=== PATIENT | female | born 1990 | race American Indian/Alaskan Native ===

== ENCOUNTER 2019-03-08 19:28 | Emergency (ER) | payer OTHER ==
[2019-03-08] MEDS ORDERED: TYLENOL PO ONE (19:37)
--- NOTE | 2019-03-08 19:39 | Emergency Department Report ---
Blank Doc - Documentation Documentation: 29 y/o female comes in chest pain, back pain, abd pain since yesterday. Has a elevated temp 102.5. Pain 07/08. Lmp 03/07/19
[2019-03-08 20:07] LABS: Basophils % (Auto) 0.4 % (0.0-1.8); Eosinophils % (Auto) 0.3 % (0.0-4.3); Hematocrit 34.6 % (30.3-42.9); Hemoglobin 11.2 gm/dl (10.1-14.3); Lymphocytes # (Auto) 2.1 K/mm3 (1.2-5.4); Lymphocytes % (Auto) 16.1 % (13.4-35.0); Mean Corpuscular HGB Conc 32 % (30-34); Mean Corpuscular Volume 75 fl (79-97); Monocytes # (Auto) 1.2 K/mm3 (0.0-0.8); Monocytes % (Auto) 9.4 % (0.0-7.3); Platelet Count 356 K/mm3 (140-440); Red Blood Count 4.62 M/mm3 (3.65-5.03); Red Cell Distribution Width 14.1 % (13.2-15.2)
[2019-03-08 20:22] LABS: Alanine Aminotransferase 15 units/L (7-56); Albumin 4.4 g/dL (3.9-5); BUN/Creatinine Ratio 8; Blood Urea Nitrogen 8 mg/dL (7-17); Calcium 9.3 mg/dL (8.4-10.2); Hemolysis Index 0
[2019-03-08 20:27] LABS: Bacteria,Urine 2+ /HPF (Negative); Bilirubin,Urine NEG (Negative); Blood,Urine LG (Negative); Color,Urine Amber (Yellow); Mucus,Urine 3+ /HPF
[2019-03-08 20:28] LABS: HCG Qualitative,Urine Negative (Negative); WBC,Urine > 182.0 /HPF (0.0-6.0)
--- NOTE | 2019-03-08 22:56 | XRay Report ---
PROCEDURE: XR CHEST ROUTINE 2V TECHNIQUE: PA and lateral chest radiographs were obtained. HISTORY: fever and chest pain. COMPARISONS: None. FINDINGS: Heart: Normal. Mediastinum/Vessels: Normal. Lungs/Pleural space: Normal. Bony thorax: No acute osseous abnormality. IMPRESSION: Normal examination. This document is electronically signed by Vance Mantilla MD., Mar 08 2019 10:54:16 PM ET
[2019-03-08] MEDS ORDERED: LEVAQUIN PO ONE (23:50)
[2019-03-08] MEDS ORDERED: NACL 0.9% 1000 ML 1,000 ML IV ONE (23:50)
[2019-03-08] MEDS ORDERED: ZOFRAN IV ONE (23:50)
[2019-03-08] MEDS ORDERED: IBUPROFEN PO ONE (23:50)
--- NOTE | 2019-03-08 23:52 | Emergency Department Report ---
ED Abdominal Pain HPI - General Chief Complaint: Abdominal Pain Stated Complaint: ABD PAIN Time Seen by Provider: 03/08/19 23:48 Source: patient Mode of arrival: Ambulatory Limitations: No Limitations - History of Present Illness Initial Comments: This is a 29-year-old female here report that she is having lower abdominal pain to her pelvic area that started yesterday, nausea without vomiting and said that she is having lower back pain and she also reported that she was having some chest pain but none today. Denies any heart disease, high blood pressure. Reports chills. Denies any vaginal bleeding or discharge and menstrual period started 03/07/2019. She is currently on her period. She reports urinary burning with frequency. Denies any shortness of breath or cough .denies any diarrhea MD Complaint: abdominal pain, flank pain Onset/Timin -: days(s) Location: suprapubic, bilateral flank Radiation: none Migration to: no migration Severity: severe Severity scale (0 -10): 9 Quality: cramping, aching Consistency: constant Improves With: nothing Worsens With: nothing Context: other (unknown) Associated Symptoms: nausea, chills, dysuria. denies: vomiting, diarrhea, fever, constipation, hematemesis, hematochezia, melena, hematuria, anorexia, syncope Treatments Prior to Arrival: other (none) - Related Data LMP Date: 03/07/19 Previous Rx's Medication Instructions Recorded Last Taken Type Ciprofloxacin HCl [Ciprofloxacin 500 mg PO Q12HR 10 Days #20 tab 03/09/19 Unknown Rx TAB] Ibuprofen [Motrin] 600 mg PO Q8H PRN #12 tablet 03/09/19 Unknown Rx Ondansetron [Zofran ODT TAB] 8 mg PO Q8HR PRN #16 tab.rapdis 03/09/19 Unknown Rx Phenazopyridine [Pyridium] 100 mg PO TID PRN 3 Days #9 tab 03/09/19 Unknown Rx Allergies Allergy/AdvReac Type Severity Reaction Status Date / Time No Known Allergies Allergy Unverified 03/08/19 19:30 ED Review of Systems ROS: Stated complaint: ABD PAIN Other details as noted in HPI Constitutional: chills. denies: fever Eyes: denies: eye pain ENT: denies: ear pain, throat pain, congestion Respiratory: denies: cough, shortness of breath, wheezing Cardiovascular: denies: chest pain, palpitations, dyspnea on exertion, edema, syncope Gastrointestinal: abdominal pain, nausea. denies: vomiting, diarrhea, constipa tion, hematemesis, melena, hematochezia Genitourinary: dysuria, frequency. denies: hematuria, discharge, abnormal menses, dyspareunia Musculoskeletal: back pain. denies: joint swelling, arthralgia, myalgia Skin: denies: rash Neurological: denies: headache, weakness, numbness, paresthesias, confusion, abnormal gait ED Past Medical Hx - Past Medical History Previous Medical History?: No - Surgical History Past Surgical History?: No - Family History Family history: no significant - Social History Smoking Status: Current Every Day Smoker Substance Use Type: None - Medications Home Medications: Home Medications Medication Instructions Recorded Confirmed Last Taken Type Ciprofloxacin HCl [Ciprofloxacin 500 mg PO Q12HR 10 Days #20 tab 03/09/19 Unknown Rx TAB] Ibuprofen [Motrin] 600 mg PO Q8H PRN #12 tablet 03/09/19 Unknown Rx Ondansetron [Zofran ODT TAB] 8 mg PO Q8HR PRN #16 tab.rapdis 03/09/19 Unknown Rx Phenazopyridine [Pyridium] 100 mg PO TID PRN 3 Days #9 tab 03/09/19 Unknown Rx ED Physical Exam - General Limitations: No Limitations General appearance: alert, in no apparent distress - Head Head exam: Present: atraumatic, normocephalic - Eye Eye exam: Present: normal appearance, PERRL, EOMI - ENT ENT exam: Present: normal exam, normal orophraynx, mucous membranes dry - Neck Neck exam: Present: normal inspection, full ROM. Absent: tenderness, meningismus, lymphadenopathy - Respiratory Respiratory exam: Present: normal lung sounds bilaterally. Absent: respiratory distress, chest wall tenderness - Cardiovascular Cardiovascular Exam: Present: tachycardia, normal heart sounds - GI/Abdominal GI/Abdominal exam: Present: soft, tenderness (multiple tenderness to suprapubic area), normal bowel sounds. Absent: distended, guarding, rebound, rigid, organomegaly, mass - Extremities Exam Extremities exam: Present: normal inspection, full ROM, normal capillary refill, other (No cce. + 2 pulses in all extremities, no neurovascular compromise). Absent: tenderness, pedal edema, joint swelling - Back Exam Back exam: Present: normal inspection, full ROM, CVA tenderness (R), CVA tenderness (L), other (ambulates without any difficulties). Absent: muscle spasm, paraspinal tenderness, vertebral tenderness, rash noted - Neurological Exam Neurological exam: Present: alert, oriented X3, normal gait - Psychiatric Psychiatric exam: Present: normal affect, normal mood - Skin Skin exam: Present: warm, dry, intact, normal color. Absent: rash ED Course Vital Signs 03/08/19 03/08/19 03/09/19 19:34 19:35 00:27 Temperature 102.5 F H 102.5 F H 99.7 F H Pulse Rate 120 H 121 H 91 H Respiratory 18 18 16 Rate Blood Pressure 134/81 134/81 Blood Pressure 92/53 [Left] O2 Sat by Pulse 97 97 100 Oximetry Manual BP is 122/74 - Reevaluation(s) Reevaluation #1: 03/08/19 00:30 Patient given Motrin 800 mg by mouth and prior to Motrin she received Tylenol in triage area at approximately 6:28 PM. This was given for fever. She received 1 L of normal saline IV fluid and a milligram of Zofran in the emergency room. Patient with pyelonephritis. Heart rates elevated and will be reevaluated after IV fluid Reevaluation #2: 03/09/19 01:38 Patient received 1 L of normal saline IV, Zofran 8 mg IV and Motrin 800 mg by mouth and she is feeling better after medication. Vital signs are better. ED Medical Decision Making - Lab Data Result diagrams: 03/08/19 19:51 03/08/19 19:51 Lab Results 03/08/19 03/08/19 03/08/19 Range/Units 19:51 19:51 20:09 WBC 13.0 H (4.5-11.0) K/mm3 RBC 4.62 (3.65-5.03) M/mm3 Hgb 11.2 (10.1-14.3) gm/dl Hct 34.6 (30.3-42.9) % MCV 75 L (79-97) fl MCH 24 L (28-32) pg MCHC 32 (30-34) % RDW 14.1 (13.2-15.2) % Plt Count 356 (140-440) K/mm3 Lymph % (Auto) 16.1 (13.4-35.0) % [place] % (Auto) 9.4 H (0.0-7.3) % Eos % (Auto) 0.3 (0.0-4.3) % Baso % (Auto) 0.4 (0.0-1.8) % Lymph # 2.1 (1.2-5.4) K/mm3 [place] # 1.2 H (0.0-0.8) K/mm3 Eos # 0.0 (0.0-0.4) K/mm3 Baso # 0.0 (0.0-0.1) K/mm3 Seg Neutrophils % 73.8 H (40.0-70.0) % Seg Neutrophils # 9.6 H (1.8-7.7) K/mm3 Sodium 135 L (137-145) mmol/L Potassium 3.6 (3.6-5.0) mmol/L Chloride 96.7 L (98-107) mmol/L Carbon Dioxide 25 (22-30) mmol/L Anion Gap 17 mmol/L BUN 8 (7-17) mg/dL Creatinine 1.0 (0.7-1.2) mg/dL Estimated GFR > 60 ml/min BUN/Creatinine Ratio 8 % Glucose 110 H (65-100) mg/dL Calcium 9.3 (8.4-10.2) mg/dL Total Bilirubin 0.70 (0.1-1.2) mg/dL AST 17 (5-40) units/L ALT 15 (7-56) units/L Alkaline Phosphatase 78 (35-129) units/L Total Protein 8.0 (6.3-8.2) g/dL Albumin 4.4 (3.9-5) g/dL Albumin/Globulin Ratio 1.2 % Lipase 14 (13-60) units/L Urine Color [place] (Yellow) Urine Turbidity Cloudy (Clear) Urine pH 5.0 (5.0-7.0) Ur Specific [place] 1.017 (1.003-1.030) Urine Protein 100 mg/dl (Negative) mg/dL Urine Glucose (UA) Neg (Negative) mg/dL Urine Ketones Tr (Negative) mg/dL Urine Blood Lg (Negative) Urine Nitrite Neg (Negative) Urine Bilirubin Neg (Negative) Urine Urobilinogen 2.0 (<2.0) mg/dL Ur Leukocyte Esterase Lg (Negative) Urine WBC (Auto) > 182.0 H (0.0-6.0) /HPF Urine RBC (Auto) 48.0 (0.0-6.0) /HPF U Epithel Cells (Auto) 3.0 (0-13.0) /HPF Urine Bacteria (Auto) 2+ (Negative) /HPF Urine WBC Clumps 3+ /HPF Urine Mucus 3+ /HPF Urine HCG, Qual Negative (Negative) Urine culture pending - Radiology Data Radiology results: report reviewed Chest x-ray 2 views dictated by radiologist and report reviewed by myself and no acute findings Findings [facility] [address] [place] [address] XRay Report Signed Patient: RUPAL HUGHES MR#: [id number] : 1990 Acct:[id number] Age/Sex: 29 / F ADM Date: 03/08/19 Loc: ED Attending Dr: Ordering Physician: EDGARDO ESPINAL Date of Service: 03/08/19 Procedure(s): XR chest routine 2V Accession Number(s): [id number] cc: EDGARDO ESPINAL Fluoro Time In Minutes: PROCEDURE: XR CHEST ROUTINE 2V TECHNIQUE: PA and lateral chest radiographs were obtained. HISTORY: fever and chest pain. COMPARISONS: None. FINDINGS: Heart: Normal. Mediastinum/Vessels: Normal. Lungs/Pleural space: Normal. Bony thorax: No acute osseous abnormality. IMPRESSION: Normal examination. This document is electronically signed by Felecia Mantilla MD., Mar 08 2019 10:54:16 PM ET Transcribed By: [facility] [place] Dictated By: FELECIA MANTILLA Electronically Authenticated By: FELECIA MANTILLA Signed Date/Time: 03/08/192255 DD/ 34 TD/TT: 03/08/192134 - Medical Decision Making This is a 21-year-old female found to have pyelonephritis. She was treated in emergency room with Levaquin 750 mg by mouth 1, given Zofran 8 mg IV for nausea and 1 L of normal saline IV. She was given Tylenol 975 mg and triage area followed by Motrin 800 mg in ED room. Her temperature is below 100 and her heart rate is 91. Blood pressure is stable and patient says she is feeling a lot better. Denies any abdominal or back pain at present. Denies any nausea. X-ray 2 view chest reveals no acute cardiopulmonary processes Labs: Please review under laboratory section Assessment/plan Acute pyelonephritis-started on Levaquin Abdominal pain-resolved Nausea without vomiting-resolved Tachycardia-resolved Fever in adults-better after Motrin and Tylenol and now 99.5. Patient treated with medication in emergency room and she is not having any pain, fevers nontender and 0.5 and heart rate is at 91 bpm. I explained her diagnosis and treatment plan and she does not have a primary care physician so I told her to follow-up at outside [facility] in 2 days and if her condition worsens prior to follow-up to return to the emergency room if she is not feeling better. Patient discharged home on ciprofloxacin, Zofran, Pyridium and Motrin. - Differential Diagnosis colitis, ectopic , ovarian cyst, pyelonephritis, UTI, enteritis Critical care attestation.: If time is entered above; I have spent that time in minutes in the direct care of this critically ill patient, excluding procedure time. ED Disposition Clinical Impression: Pyelonephritis, Nausea, Fever in adult, Tachycardia Abdominal pain Qualifiers: Abdominal location: lower abdomen, unspecified Qualified Code(s): R10.30 - Lower abdominal pain, unspecified Disposition: DC-01 TO HOME OR SELFCARE Is pt being admited?: No Does the pt Need Aspirin: No Condition: Stable Instructions: Abdominal Pain (ED), Flank Pain (ED), Acute Pyelonephritis (ED), Acute Nausea and Vomiting (ED), Fever in Adults (ED) Additional Instructions: Please follow up with outside Medical Center in 2 days for pyelonephritis Please read discharge instruction paperwork which include YOUR diagnosis. Take medication as prescribed. Zofran is for nausea and Motrin is for pain and fever. Pyridium is for urinary burning Ciprofloxacin is an antibiotic to treat your kidney infection and it is very important that you take this medication until completed. He can get this medication at [facility] for free. If he condition worsens prior to following up, please return to the emergency room ANA Increase her fluid intake to 2-3 L of water daily Referrals: SALONI BRAGA MD [Primary Care Provider] - 03/10/19 Forms: Work/School Release Form(ED)
[2019-03-09 00:28] VITALS: BP 92/53
== END 2019-03-09 02:03 | disposition home or self-care (01) ==
LOC: ED 19:28
DX: N12 Tubulo-interstitial nephritis, not specified as acute or chronic (principal); R00.0 Tachycardia, unspecified; F17.200 Nicotine dependence, unspecified, uncomplicated
CPT/HCPCS: 36415; 71046; 80053; 81001; 81025; 83690; 85025; 87076; 87086; 87186; 96374; 99284; J2405; J7030